=== PATIENT | female | born 1990 | race Two or more races ===

== ENCOUNTER 2021-08-01 20:27 | Emergency (ER) | payer OTHER ==
[~2021-08-01] VITALS: Ht 160 cm; Wt 77.1 kg
[2021-08-01] MEDS ORDERED: PRENATABS FA T1 EACH (20:35)
== END 2021-08-02 00:02 | disposition home or self-care (01) ==
LOC: ER 20:27
DX: O20.9 Hemorrhage in early pregnancy, unspecified (principal); O20.8 Other hemorrhage in early pregnancy

== ENCOUNTER 2021-11-20 17:03 | Emergency (ER) | payer OTHER ==
[~2021-11-20] VITALS: Ht 160 cm; Wt 86.2 kg
[~2021-11-20 17:03] MED LIST: PRENATABS FA T1 EACH
[2021-11-20] MEDS ORDERED: PANADOL (18:23)
[2021-11-20] MEDS ORDERED: TUSSIN DM SYRU118 ML PO (20:26)
[2021-11-20] MEDS ORDERED: PEPCID AC20 MG PO (20:26)
[2021-11-20] MEDS ORDERED: MEDROLPACK PO (20:26)
[2021-11-20] MEDS ORDERED: MACRODANTIN100 M1 PO (20:26)
== END 2021-11-20 20:31 ==
LOC: ER 17:03
DX: U07.1 COVID-19 (principal); J06.9 Acute upper respiratory infection, unspecified; Z3A.00 Weeks of gestation of pregnancy not specified; O23.40 Unspecified infection of urinary tract in pregnancy, unspecified trimester

== ENCOUNTER 2022-03-01 13:30 | Inpatient (IN) | payer OTHER ==
[~2022-03-01] VITALS: Ht 160 cm; Wt 95.3 kg
[~2022-03-01 13:30] MED LIST changes: +MACRODANTIN100 M1 PO; +MEDROLPACK PO; +PANADOL; +PEPCID AC20 MG PO; +TUSSIN DM SYRU118 ML PO
[2022-03-15] MEDS ORDERED: DHA100 MG (11:58)
[2022-03-15] MEDS ORDERED: PROBIOTIC250 MG (11:58)
[2022-03-15] MEDS ORDERED: PRENATAL TABLE1 EAC3 (11:58)
== END 2022-03-18 19:02 | disposition home or self-care (01) | DRG 788 ==
LOC: SURG-SUITE 03-15 09:30 → LDR 03-15 09:30 → SURG-SUITE 03-15 09:30 → LDR 03-15 13:30 → SURG-SUITE 03-15 14:04
PROVIDERS: ADMIT Obstetrics & Gynecology Maternal & Fetal Medicine; ATTEND Obstetrics & Gynecology
PROC: 0UB90ZZ Excision of Uterus, Open Approach (ICD-10-PCS; 2022-03-15)
PROC: 0DNW0ZZ Release Peritoneum, Open Approach (ICD-10-PCS; 2022-03-15)
PROC: 4A1HXCZ Monitoring of Products of Conception, Cardiac Rate, External Approach (ICD-10-PCS; 2022-03-15)
PROC: 10D00Z1 Extraction of Products of Conception, Low, Open Approach (ICD-10-PCS; principal; 2022-03-15 18:15)
DX: O33.8 Maternal care for disproportion of other origin (principal); O34.13 Maternal care for benign tumor of corpus uteri, third trimester; D25.9 Leiomyoma of uterus, unspecified; Z3A.40 40 weeks gestation of pregnancy; Z37.0 Single live birth; Z20.822 Contact with and (suspected) exposure to COVID-19; O99.613 Diseases of the digestive system complicating pregnancy, third trimester; K66.0 Peritoneal adhesions (postprocedural) (postinfection); O99.820 Streptococcus B carrier state complicating pregnancy

== ENCOUNTER 2022-03-18 21:02 | Emergency (ER) | payer OTHER ==
[~2022-03-18] VITALS: Ht 157.5 cm; Wt 97.5 kg
[~2022-03-18 21:02] MED LIST changes: +DHA100 MG; +PRENATAL TABLE1 EAC3; +PROBIOTIC250 MG
== END 2022-03-18 23:56 | disposition home or self-care (01) ==
LOC: ER 21:02
DX: G43.909 Migraine, unspecified, not intractable, without status migrainosus (principal)

== ENCOUNTER 2024-07-11 09:45 | Inpatient (IN) | payer OTHER ==
[~2024-07-11] VITALS: Ht 160 cm; Wt 3.2 kg
[~2024-07-11 09:45] MED LIST changes: +PRENATAL + DHA1 EAC1; +ZYRTEC10 MG PO
[2024-07-16 11:27] LABS: HEMATOCRIT 33.8 % (36.0-45.00); MEAN CELL VOLUME 80.7 fL (80.00-100.00); MEAN CORPUSCULAR HEMOGLOBIN 26.3 pg (27.00-32.0); MEAN CORPUSCULAR HGB CONC 32.7 g/dl (32.0-36.0); PLATELET COUNT 253 K/uL (150-450); RED BLOOD COUNT 4.19 M/uL (4.00-6.00)
[2024-07-16 11:59] LABS: INR 0.97; PARTIAL THROMBOPLASTIN TIME 29.4 SECONDS (22.0-34.0); PROTHROMBIN TIME 10.6 SECONDS (9.0-11.5)
[2024-07-16 12:21] LABS: ALBUMIN 2.3 gm/dL (3.4-5.0); BILIRUBIN TOTAL 0.5 mg/dL (0.3-1.2); CALCIUM 8.9 mg/dL (8.5-10.1); CREATININE SERUM 0.7 mg/dL (0.55-1.02); GFR 95.22; GLOBULINA 4.1 G/DL (2.4-3.5); POTASSIUM 4.44 mEq/L (3.5-5.1); TOTAL PROTEIN 6.4 gm/dL (6.4-8.2)
[2024-07-16] MEDS ORDERED: IRON236 MG PO (14:44)
[2024-07-18] MEDS ORDERED: CEFAZOLIN SODIUM 1,000 MG VIAL ONE (08:55)
[2024-07-18] MEDS ORDERED: OXYTOCIN 10 UNITS/ML VIAL ONE (10:33)
[2024-07-18] MEDS ORDERED: ERYTHROMYCIN BASE 1 GM TUBE OP ONE (10:34)
[2024-07-18] MEDS ORDERED: FAMOTIDINE/PF 20 MG/2 ML VIAL ONE (10:56)
[2024-07-18] MEDS ORDERED: OXYTOCIN 1,000 ML IV SCH (12:30)
[2024-07-18] MEDS ORDERED: MEPERIDINE HCL/PF 50 MG/ML VIAL IM PRN (12:30)
[2024-07-18] MEDS ORDERED: IBUprofen 400 MG TABLET PO PRN (12:30)
[2024-07-18] MEDS ORDERED: MORPHINE SULFATE 4 MG/ML VIAL IV ONE ×2 (13:20→13:50)
[2024-07-19] MEDS ORDERED: ACETAMINOPHEN 500 MG GEL..CAP PO SCH (08:41)
[2024-07-19] MEDS ORDERED: FF) RHO(D) IMMUNE GLOBULIN (POM) IM NR (08:45)
[2024-07-19] MEDS ORDERED: RINGERS SOLUTION,LACTATED 1,000 ML IV SCH (08:45)
[2024-07-19 11:06] LABS: HEMATOCRIT 31.5 % (36.0-45.00); HEMOGLOBIN 10.3 g/dL (12.0-15.00); MEAN CELL VOLUME 80.6 fL (80.00-100.00); MEAN CORPUSCULAR HEMOGLOBIN 26.3 pg (27.00-32.0); MEAN CORPUSCULAR HGB CONC 32.6 g/dl (32.0-36.0); PLATELET COUNT 232 K/uL (150-450); RED BLOOD COUNT 3.91 M/uL (4.00-6.00)
[2024-07-19] MEDS ORDERED: DOCUSATE SODIUM 100MG CAP PO SCH (12:00)
[2024-07-19] MEDS ORDERED: SIMETHICONE 125 MG CAPSULE PO SCH (13:00)
[2024-07-19] MEDS ORDERED: GABAPENTIN 300 MG CAPSULE PO SCH (13:00)
[2024-07-20] MEDS ORDERED: OxyCODONE HCL 5 MG TABLET (ROXICODONE) PO PRN (08:00)
[2024-07-20] MEDS ORDERED: KETOROLAC TROMETHAMINE 10 MG TABLET PO SCH (08:00)
[2024-07-20] MEDS ORDERED: CETIRIZINE HCL 5MG/5ML BLIST.PACK PO SCH (12:00)
[2024-07-20] MEDS ORDERED: CETIRIZINE HCL 5 MG/5 ML ML PO SCH (12:00)
[2024-07-20] MEDS ORDERED: DOCUSATE CALCIUM 240 MG CAPSULE PO SCH (17:00)
== END 2024-07-21 15:41 | disposition home or self-care (01) | DRG 785 ==
LOC: OB/GYN 07-18 06:36 → O/R 07-18 06:36 → LDR 07-18 09:45 → OB/GYN 07-18 14:13
PROVIDERS: Obstetrics & Gynecology; ADMIT Obstetrics & Gynecology Maternal & Fetal Medicine; ATTEND Obstetrics & Gynecology Maternal & Fetal Medicine
PROC: 0UB70ZZ Excision of Bilateral Fallopian Tubes, Open Approach (ICD-10-PCS; 2024-07-18)
PROC: 4A1HXCZ Monitoring of Products of Conception, Cardiac Rate, External Approach (ICD-10-PCS; 2024-07-18)
PROC: 10D00Z1 Extraction of Products of Conception, Low, Open Approach (ICD-10-PCS; principal; 2024-07-18 12:45)
DX: O34.211 Maternal care for low transverse scar from previous cesarean delivery (principal); Z3A.39 39 weeks gestation of pregnancy; Z37.0 Single live birth; Z20.822 Contact with and (suspected) exposure to COVID-19; Z30.2 Encounter for sterilization

== ENCOUNTER 2024-07-16 11:57 | Outpatient (CLI) | payer OTHER ==
[2024-07-16] MEDS ORDERED: IRON236 MG PO (14:44)
== END 2024-07-16 12:48 | disposition home or self-care (01) ==
LOC: NST 11:57
PROVIDERS: ATTEND Obstetrics & Gynecology
DX: Z34.83 Encounter for supervision of other normal pregnancy, third trimester (principal)